=== PATIENT | male | born 1990 | race Caucasian/White ===

== ENCOUNTER 2025-03-21 14:19 | Inpatient (IN) | payer MEDICAID ==
[~2025-03-21] VITALS: Ht 170.2 cm; Wt 80.3 kg
[2025-03-21] MEDS ORDERED: QUET300T2 PO (14:58)
[2025-03-21] MEDS ORDERED: QUET200T PO (14:58)
[2025-03-21] MEDS: DiphenhydrAMINE HCL 50 MG/ML VIAL IM ONE (14:59)
[2025-03-21] MEDS: LORazepam 2 MG/ML VIAL IM ONE (14:59)
[2025-03-21] MEDS: haloperidoL LACTATE 5 MG/ML VIAL IM ONE (15:00)
[2025-03-21 15:59] LABS: COVID AG,FIA SOURCE NASAL SWAB
[2025-03-21 16:02] LABS: BASOPHILS % (AUTO) 1.1 % (0.0-2.0); EOSINOPHILS % (AUTO) 1.3 % (1.0-6.0); HEMATOCRIT 36.1 % (41-53); LYMPHOCYTES # (AUTO) 2.6 K/uL (1.0-4.8); LYMPHOCYTES % (AUTO) 38.4 % (22.0-44.0); MEAN CORPUSCULAR HGB CONC 33.2 G/dL (31.0-37.0); MEAN CORPUSCULAR VOLUME 87 fL (80-100); MONOCYTES # (AUTO) 0.4 K/uL (0.1-1.0); MONOCYTES % (AUTO) 6.2 % (2.0-9.0); NEUTROPHILS # (AUTO) 3.6 K/uL (1.8-7.7); PLATELET COUNT (AUTO) 320 K/uL (150-450); RED BLOOD CELL COUNT(AUTO) 4.13 MIL/uL (4.50-5.90); RED CELL DISTRIBUTION WIDTH 15.6 % (11.5-14.5); WHITE BLOOD COUNT (AUTO) 6.8 K/uL (4.5-11.0)
[2025-03-21 16:05] LABS: APPEARANCE,URINE CLEAR (CLEAR); BILIRUBIN,URINE NEGATIVE (NEGATIVE); COLOR,URINE COLORLESS (YELLOW); GLUCOSE, URINE (UA) NEGATIVE (NEGATIVE); KETONES,URINE NEGATIVE (NEGATIVE); LEUKOCYTE ESTERASE ,URINE NEGATIVE (NEGATIVE); NITRATE,URINE NEGATIVE (NEGATIVE); OCCULT BLOOD,URINE NEGATIVE (NEGATIVE); PROTEIN,URINE NEGATIVE (NEGATIVE); SPECIFIC GRAVITIY, URINE 1.003 (1.003-1.030); UROBILINOGEN,URINE <=1.0 mg/dL (<=1.0)
[2025-03-21 16:10] LABS: AMPHET/METH SCREEN,URINE POSITIVE (NEGATIVE); BARBITURATE SCREEN, URINE NEGATIVE (NEGATIVE); BENZODIAZEPINES SCREEN,URINE NEGATIVE (NEGATIVE); CANNABINOID SCREEN,URINE NEGATIVE (NEGATIVE); COCAINE SCREEN,URINE NEGATIVE (NEGATIVE); METHADONE SCREEN, URINE NEGATIVE (NEGATIVE); OPIATE SCREEN,URINE NEGATIVE (NEGATIVE); PHENCYCLIDINE SCREEN,URINE NEGATIVE (NEGATIVE)
[2025-03-21 16:12] LABS: ANION GAP 14 mmol/L (8-16); CALCIUM, TOTAL 8.3 mg/dL (8.8-10.5); CARBON DIOXIDE 24 mmol/L (22-29); CHLORIDE 96 mmol/L (98-107); CREATININE 0.74 mg/dL (0.60-1.30); GLOMERULAR FILTR. RATE CALC > 60 mL/min (>60); GLUCOSE,RANDOM 94 mg/dL (70-110); POTASSIUM 3.2 mmol/L (3.5-5.1); SODIUM SERUM 134 mmol/L (136-145); UREA NITROGEN, BLOOD 5 mg/dL (7-18)
[2025-03-21 16:13] LABS: ALCOHOL, URINE DRUG SCREEN 330 (NEGATIVE)
[2025-03-21 16:23] LABS: SARS-COV2 (COVID) ANTIGEN,FIA Negative (Negative)
[2025-03-21] MEDS: POTASSIUM CHLORIDE 20 MEQ ER TABLET PO ONE (19:21)
[2025-03-22] MEDS: QUEtiapine FUMARATE 300 MG TABLET PO ONE (01:10)
[2025-03-22 01:36] VITALS: O2SAT 97
[2025-03-22 03:25] VITALS: BP 106/63; PULSE 66; RESP 18; TEMP 98; O2SAT 99
[2025-03-22] MEDS: haloperidoL 5 MG TABLET PO PRN (09:05)
[2025-03-22] MEDS: LORazepam 2 MG TABLET PO PRN (09:05)
[2025-03-22 09:22] VITALS: RESP 18
[2025-03-22] MEDS: QUEtiapine FUMARATE 200 MG TABLET PO SCH (09:47)
[2025-03-22] MEDS ORDERED: PETROLATUM,WHITE 28 GM JELLY TP PRN (20:00)
[2025-03-22] MEDS ORDERED: BENZOCAINE/MENTHOL [CEPACOL] LOZENGE PO PRN (20:00)
[2025-03-22] MEDS ORDERED: BACITRACIN 28 GM OINTMENT TP PRN (20:00)
[2025-03-22] MEDS ORDERED: OMEPRAZOLE 20 MG CAPSULE PO PRN (20:00)
[2025-03-22] MEDS ORDERED: ONDANSETRON 4 MG TABLET PO PRN (20:00)
[2025-03-22] MEDS ORDERED: MAG HYDROX/ALUMINUM HYD/SIMETH ES 30 ML SUSPENSION UDCUP PO PRN (20:00)
[2025-03-22] MEDS ORDERED: LOPERAMIDE HCL 2 MG CAPSULE PO PRN (20:00)
[2025-03-22] MEDS ORDERED: ALBUTEROL SULFATE HFA 90 MCG/PUFF 8 GM INHALER IH PRN (20:00)
[2025-03-22] MEDS ORDERED: IBUPROFEN 600 MG TABLET PO PRN (20:00)
[2025-03-22] MEDS: ZOLPIDEM TARTRATE 10 MG TABLET PO PRN (20:46)
[2025-03-22] MEDS: POTASSIUM CHLORIDE 20 MEQ ER TABLET PO ONE (20:47)
[2025-03-22] MEDS: QUEtiapine FUMARATE 300 MG TABLET PO SCH (21:00)
[2025-03-23 09:32] LABS: POTASSIUM 3.8 mmol/L (3.5-5.1)
[2025-03-23 09:48] VITALS: BP 112/94; PULSE 89; RESP 18; TEMP 97.3; O2SAT 99
[2025-03-23 14:08] VITALS: BP 123/83; PULSE 83; RESP 18; TEMP 98; O2SAT 98
[2025-03-23 16:08] VITALS: BP 131/92; PULSE 78; RESP 20; TEMP 97.6; O2SAT 98
[2025-03-23 21:49] VITALS: BP 115/87; PULSE 70; RESP 19; TEMP 97.2; O2SAT 90
[2025-03-23 22:25] VITALS: BP 115/87; PULSE 78; RESP 18; TEMP 97.2; O2SAT 90
[2025-03-24 02:45] VITALS: BP 126/83; PULSE 71; RESP 18; TEMP 97.2; O2SAT 98
[2025-03-24 07:04] VITALS: BP 116/85; PULSE 65; RESP 18; TEMP 97.6; O2SAT 98
[2025-03-24 11:47] VITALS: BP 120/80; PULSE 103; RESP 16; TEMP 97.7; O2SAT 100
[2025-03-24 14:26] VITALS: BP 120/80; PULSE 103; RESP 16; TEMP 97.7; O2SAT 100
[2025-03-24 20:17] VITALS: BP 128/76; PULSE 81; RESP 16; TEMP 97.4; O2SAT 99
[2025-03-25 02:25] VITALS: BP 127/75; PULSE 71; RESP 18; TEMP 97.4; O2SAT 99
[2025-03-25] MEDS: CloNIDine HCL 0.1 MG TABLET PO PRN (08:54)
[2025-03-25 09:36] VITALS: BP 149/113; PULSE 110; RESP 16; TEMP 97.7; O2SAT 99
[2025-03-25] MEDS ORDERED: lisinopriL 10 MG TABLET PO SCH (10:30)
[2025-03-25 12:41] VITALS: BP 128/106; PULSE 92; RESP 16; O2SAT 99
[2025-03-25 13:36] VITALS: BP 128/100; RESP 16; O2SAT 99
[2025-03-25] MEDS: ACETAMINOPHEN 325 MG TABLET PO PRN (13:36)
[2025-03-25 14:46] VITALS: BP 135/110; RESP 16; O2SAT 99
[2025-03-26 08:23] VITALS: BP 123/92; PULSE 102; RESP 17; TEMP 97.5; O2SAT 100
[2025-03-26] MEDS: lisinopriL 10 MG TABLET PO SCH (08:42)
[2025-03-26 09:00] VITALS: BP 123/92; PULSE 102; RESP 17; TEMP 97.5; O2SAT 100
[2025-03-26] MEDS: SERTRALINE HCL 50 MG TABLET PO SCH (09:49)
[2025-03-26 15:20] VITALS: BP 127/86; PULSE 95; RESP 18; TEMP 97.2; O2SAT 98
[2025-03-26 16:20] VITALS: RESP 16
[2025-03-26 20:22] VITALS: BP 121/85; PULSE 79; RESP 17; TEMP 98.8; O2SAT 97
[2025-03-26 23:36] VITALS: BP 121/85; PULSE 79; RESP 17; TEMP 98.8; O2SAT 97
[2025-03-27 08:13] VITALS: BP 144/94; PULSE 99; RESP 18; TEMP 97.8; O2SAT 90
[2025-03-27 09:00] VITALS: BP 144/94; PULSE 90; RESP 18; TEMP 97.8; O2SAT 99
[2025-03-27] MEDS: DOCUSATE SODIUM 100 MG CAPSULE PO PRN (16:06)
[2025-03-27 20:22] VITALS: BP 130/92; PULSE 85; RESP 17; TEMP 97.3; O2SAT 98
[2025-03-27 22:46] VITALS: BP 130/92; PULSE 85; RESP 17; TEMP 97.3; O2SAT 98
[2025-03-28 09:10] VITALS: BP 122/88; PULSE 99; RESP 18; TEMP 97.9; O2SAT 92
[2025-03-28 20:16] VITALS: BP 120/87; PULSE 93; RESP 17; TEMP 97.5; O2SAT 100
[2025-03-29 08:23] VITALS: BP 128/86; PULSE 96; RESP 18; TEMP 98.8; O2SAT 99
[2025-03-29] MEDS: MAGNESIUM HYDROXIDE SUSPENSION 30 ML UDCUP PO PRN (14:28)
[2025-03-29] MEDS ORDERED: TraZODone HCL 50 MG TABLET PO SCH (21:00)
[2025-03-29] MEDS ORDERED: TraZODone HCL 50 MG TABLET PO PRN (21:00)
[2025-03-29 21:27] VITALS: BP_SYST 138; PULSE 82; RESP 16; TEMP 97.7; O2SAT 100
[2025-03-29 21:31] VITALS: BP 138/95; PULSE 82; RESP 16; TEMP 97.7; O2SAT 100
[2025-03-29] MEDS: PRAZOSIN HCL 1 MG CAPSULE PO SCH (21:45)
[2025-03-30 09:53] VITALS: BP 113/76; PULSE 110; RESP 18; TEMP 97.6; O2SAT 98
[2025-03-30 13:55] VITALS: PULSE 99; RESP 18
[2025-03-30 20:01] VITALS: RESP 17
[2025-03-31 08:34] VITALS: BP 110/80; PULSE 98; RESP 18; TEMP 98.5; O2SAT 86
[2025-03-31 20:19] VITALS: RESP 17
[2025-03-31] MEDS: TraZODone HCL 150 MG TABLET PO PRN (21:38)
[2025-04-01 08:13] VITALS: BP 115/76; PULSE 98; RESP 18; TEMP 97.4; O2SAT 100
[2025-04-01 20:34] VITALS: BP 107/73; PULSE 85; RESP 18; TEMP 97.3; O2SAT 99
[2025-04-02 09:01] VITALS: BP 103/75; PULSE 90; RESP 17; TEMP 98; O2SAT 99
[2025-04-02 20:07] VITALS: BP_SYST 102; BP_SYST 109; BP_DIAS 71; BP_DIAS 74; PULSE 73; PULSE 88; RESP 18; TEMP 97.8; O2SAT 98; O2SAT 99
[2025-04-03] MEDS ORDERED: PRAZ1 PO (07:25)
[2025-04-03] MEDS ORDERED: LISI-893 PO (07:25)
[2025-04-03] MEDS ORDERED: QUET200T30 PO (07:25)
[2025-04-03] MEDS ORDERED: QUET300T19 PO (07:25)
[2025-04-03] MEDS ORDERED: SERT-439 PO (07:25)
[2025-04-03 08:15] VITALS: BP 110/75; PULSE 98; RESP 18; TEMP 97.5; O2SAT 99
== END 2025-04-03 11:12 | disposition home or self-care (01) | DRG 750 ==
LOC: EMS 14:21 → B3A 03-22 02:04 → EDBD 03-22 02:04
PROVIDERS: ADMIT Psychiatry & Neurology Psychiatry; ATTEND Psychiatry & Neurology Psychiatry
PROC: GZHZZZZ Group Psychotherapy (ICD-10-PCS; principal; 2025-03-23)
PROC: GZ52ZZZ Individual Psychotherapy, Cognitive (ICD-10-PCS; 2025-03-23)
DX: F25.1 Schizoaffective disorder, depressive type (principal); E87.1 Hypo-osmolality and hyponatremia; R45.851 Suicidal ideations; K59.00 Constipation, unspecified; E87.6 Hypokalemia; F15.10 Other stimulant abuse, uncomplicated; F41.9 Anxiety disorder, unspecified; Y90.6 Blood alcohol level of 120-199 mg/100 ml; G47.00 Insomnia, unspecified; Z20.822 Contact with and (suspected) exposure to COVID-19; F43.12 Post-traumatic stress disorder, chronic; F11.10 Opioid abuse, uncomplicated; F10.129 Alcohol abuse with intoxication, unspecified; Z59.00 Homelessness unspecified; Z79.899 Other long term (current) drug therapy
CPT/HCPCS: 80048; 80307; 81003; 84132; 84295; 85025; 99291; G0480; J1200; J1630; J2060